=== PATIENT | male | born 1995 | race Caucasian/White ===

== ENCOUNTER 2018-09-07 22:27 | Inpatient (IN) | payer MEDICAID ==
[~2018-09-07] VITALS: Ht 157.5 cm; Wt 47.2 kg
[2018-09-08] MEDS ORDERED: LEVETIRACETAM 500MG/5ML CUP PO ONE (02:00)
[2018-09-08 02:09] LABS: BASOPHILS % 0.6 % (0.0-2.0); EOSINOPHILS % 1.9 % (0.0-5.0); HEMATOCRIT. 45.9 % (42.0-52.0); LYMPHOCYTES % 15.7 % (20.0-50.0); MEAN CORPUSCULAR HEMOGLOBIN 31.6 pg (28.0-32.0); MEAN CORPUSCULAR VOLUME 90.7 fL (80.0-94.0); MONOCYTES % 13.4 % (2.0-8.0); NEUTROPHILS % 68.4 % (40.0-76.0); PLATELET 181 x1000/uL (130-400); RED BLOOD CELL COUNT 5.06 mill/uL (4.7-6.1); RED CELL DISTRIBUTION WIDTH 13.8 % (11.6-14.6)
[2018-09-08 02:14] LABS: CHLORIDE 106 mEq/L (98-107)
[2018-09-08 08:30] VITALS: BP 114/61
[2018-09-08 09:30] VITALS: BP 105/77
[2018-09-08] MEDS ORDERED: KEPP500 PO (11:51)
[2018-09-08 11:57] VITALS: BP 110/70
[2018-09-08] MEDS ORDERED: IPRATROPIUM/ALBUTEROL 0.5-3(2.5)MG/3ML NEB INH PRN (12:00)
[2018-09-08] MEDS ORDERED: DOCUSATE SODIUM 100MG CAPSULE PO PRN (12:00)
[2018-09-08] MEDS ORDERED: LORAZEPAM 0.5MG TABLET PO PRN (12:00)
[2018-09-08] MEDS ORDERED: ACETAMINOPHEN 325MG TABLET PO PRN (12:00)
[2018-09-08] MEDS ORDERED: CLONIDINE 0.1MG TABLET PO PRN (12:00)
[2018-09-08] MEDS ORDERED: ONDANSETRON HCL 4MG/2ML INJ IV PRN (12:00)
[2018-09-08 15:39] VITALS: BP 106/53
[2018-09-08 16:20] LABS: CANNABINOID URINE SCREEN NEGATIVE (NEGATIVE); METHADONE URINE SCREEN NEGATIVE (NEGATIVE); OPIATES URINE SCREEN PRESUMTIVE POSITIVE (NEGATIVE); PHENCYCLIDINE URINE SCREEN NEGATIVE (NEGATIVE)
[2018-09-08 16:30] LABS: *AMPHETAMINES SCREEN URINE NEGATIVE (NEGATIVE); *BARBITURATES SCREEN URINE NEGATIVE (NEGATIVE); *BENZODIAZEPINES SCREEN URINE NEGATIVE (NEGATIVE); *COCAINE SCREEN URINE NEGATIVE (NEGATIVE)
[2018-09-08] MEDS: LEVETIRACETAM 500MG TABLET PO SCH (17:07)
[2018-09-08 20:00] VITALS: BP 122/69
[2018-09-09 08:00] VITALS: BP 108/70
[2018-09-09 08:10] LABS: BASOPHILS % 0.2 % (0.0-2.0); EOSINOPHILS % 2.8 % (0.0-5.0); HEMATOCRIT. 44.9 % (42.0-52.0); HEMOGLOBIN. 15.4 g/dL (14.0-18.0); LYMPHOCYTES % 14.8 % (20.0-50.0); MEAN CORPUSCULAR VOLUME 90.3 fL (80.0-94.0); MEAN PLATELET VOLUME 10.4 fl (7.4-10.4); MONOCYTES % 12.8 % (2.0-8.0); NEUTROPHILS % 69.4 % (40.0-76.0); PLATELET 166 x1000/uL (130-400); RED BLOOD CELL COUNT 4.97 mill/uL (4.7-6.1); RED CELL DISTRIBUTION WIDTH 14.2 % (11.6-14.6)
[2018-09-09 08:19] LABS: CHLORIDE 107 mEq/L (98-107)
[2018-09-09] MEDS: LEVETIRACETAM 500MG TABLET PO SCH ×2 (09:42→17:58)
[2018-09-09 12:00] VITALS: BP 119/69
[2018-09-09 16:00] VITALS: BP 114/60
[2018-09-09 20:00] VITALS: BP 113/65
[2018-09-10 07:11] LABS: HEMATOCRIT. 45.2 % (42.0-52.0); HEMOGLOBIN. 15.5 g/dL (14.0-18.0); MEAN CORPUSCULAR HEMOGLOBIN 30.9 pg (28.0-32.0); MEAN CORPUSCULAR VOLUME 90.4 fL (80.0-94.0); MEAN PLATELET VOLUME 10.4 fl (7.4-10.4); PLATELET 177 x1000/uL (130-400); RED CELL DISTRIBUTION WIDTH 14.1 % (11.6-14.6)
[2018-09-10 08:00] VITALS: BP 104/66
[2018-09-10 08:49] LABS: PLATELET ESTIMATE NORMAL
[2018-09-10] MEDS: LEVETIRACETAM 500MG TABLET PO SCH ×2 (09:36→17:23)
[2018-09-10 12:00] VITALS: BP 119/77
[2018-09-10 16:00] VITALS: BP 100/49
[2018-09-10 20:00] VITALS: BP 101/60
[2018-09-11 06:09] LABS: BASOPHILS % 0.6 % (0.0-2.0); EOSINOPHILS % 2.2 % (0.0-5.0); HEMATOCRIT. 44.5 % (42.0-52.0); HEMOGLOBIN. 15.3 g/dL (14.0-18.0); MEAN CORPUSCULAR HEMOGLOBIN 31.3 pg (28.0-32.0); MEAN CORPUSCULAR VOLUME 90.7 fL (80.0-94.0); MEAN PLATELET VOLUME 10.7 fl (7.4-10.4); MONOCYTES % 13.4 % (2.0-8.0); NEUTROPHILS % 52.8 % (40.0-76.0); PLATELET 189 x1000/uL (130-400); RED BLOOD CELL COUNT 4.91 mill/uL (4.7-6.1); RED CELL DISTRIBUTION WIDTH 14.1 % (11.6-14.6)
[2018-09-11 08:00] VITALS: BP 110/64
[2018-09-11] MEDS: LEVETIRACETAM 500MG TABLET PO SCH (08:24)
[2018-09-11 11:12] VITALS: BP 104/70
[2018-09-11] MEDS ORDERED: KEPP500 PO (14:24)
[2018-09-11 14:33] VITALS: BP 110/64
[2018-09-11 16:00] VITALS: BP 135/84
== END 2018-09-11 16:12 | disposition home or self-care (01) | DRG 53 ==
LOC: ER 22:53 → 6EST 09-08 02:44 → EDBEDREQTM 09-08 03:01 → EDBEDREQ 09-08 03:01 → ENRESERV 09-08 05:35
PROVIDERS: ADMIT Internal Medicine; ATTEND Internal Medicine
DX: G40.909 Epilepsy, unspecified, not intractable, without status epilepticus (principal); G80.9 Cerebral palsy, unspecified; D72.821 Monocytosis (symptomatic); R53.1 Weakness; H55.09 Other forms of nystagmus; K40.20 Bilateral inguinal hernia, without obstruction or gangrene, not specified as recurrent; R39.11 Hesitancy of micturition; R42 Dizziness and giddiness; K21.9 Gastro-esophageal reflux disease without esophagitis; Z98.2 Presence of cerebrospinal fluid drainage device; V89.2XXA Person injured in unspecified motor-vehicle accident, traffic, initial encounter; Y93.89 Activity, other specified; Y92.488 Other paved roadways as the place of occurrence of the external cause; Y99.8 Other external cause status; Z88.1 Allergy status to other antibiotic agents
CPT/HCPCS: 36415; 70360; 71045; 72148; 74018; 80048; 80305; 82962; 96374; 97116; 97162; 99285; J2405; J7620